=== PATIENT | male | born 2000 | race African-American/Black ===

== ENCOUNTER 2019-05-26 18:37 | Emergency (ER) | payer OTHER ==
[~2019-05-26] VITALS: Ht 175.3 cm; Wt 90.8 kg
[2019-05-26] MEDS ORDERED: MUPI2OI TOP (20:38)
[2019-05-26] MEDS ORDERED: CLEO300C2 PO (20:38)
[2019-05-26 20:45] VITALS: BP 142/88
[2019-05-26] MEDS ORDERED: CLINDAMYCIN 150 MG CAP PO ONE (20:45)
== END 2019-05-26 20:48 | disposition home or self-care (01) ==
LOC: M ED 18:37
DX: L02.415 Cutaneous abscess of right lower limb (principal); L03.115 Cellulitis of right lower limb